=== PATIENT | male | born 1960 | race Caucasian/White ===

== ENCOUNTER 2020-02-01 12:36 | Inpatient (IN) | payer OTHER ==
[2020-02-01] MEDS ORDERED: SODIUM CHLORIDE 0.9% 500 ML 500 ML IV STA (13:19)
--- NOTE | 2020-02-01 13:32 | XR ---
EXAMINATION TYPE: XR chest 2V DATE OF EXAM: 02/01/2020 COMPARISON: None INDICATION: Dysrhythmia, short of breath TECHNIQUE: Frontal and lateral views of the chest are obtained. FINDINGS: The heart size is normal. The pulmonary vasculature is normal. There may be some mild left lower lobe infiltrate present. Suspicious consolidation is not evident. L ungs otherwise appear clear. Heart borders appear sharp. IMPRESSION: 1. Some minimal left lower lobe infiltrate is not excluded. Consider atelectasis.
[2020-02-01 13:40] LABS: Basophils % (A) 0 %; Eosinophils # (A) 0.1 k/uL (0-0.7); Eosinophils % (A) 1 %; HCT 44.1 % (39.0-53.0); HGB 15.4 gm/dL (13.0-17.5); Lymphocytes # (A) 1.4 k/uL (1.0-4.8); Lymphocytes % (A) 14 %; MCH 30.9 pg (25.0-35.0); MCHC 34.9 g/dL (31.0-37.0); MCV 88.5 fL (80.0-100.0); Mean Platelet Volume 7.6; Monocytes # (A) 0.5 k/uL (0-1.0); Monocytes % (A) 5 %; Neutrophils # (A) 8.4 k/uL (1.3-7.7); Neutrophils % (A) 79 %; Platelet Count 308 k/uL (150-450); RBC 4.98 m/uL (4.30-5.90); RDW 13.7 % (11.5-15.5); WBC 10.6 k/uL (3.8-10.6)
[2020-02-01 13:55] LABS: Partial Thromboplastin Time 24.8 sec (22.0-30.0); Prothrombin Time 10.8 sec (9.0-12.0)
[2020-02-01 14:04] LABS: Albumin 4.3 g/dL (3.5-5.0); Total Protein 8.1 g/dL (6.3-8.2)
[2020-02-01 14:05] LABS: Calcium 9.8 mg/dL (8.4-10.2); Total Bilirubin 0.9 mg/dL (0.2-1.3)
[2020-02-01 14:10] LABS: Amphetamine Screen,Urine Not Detected (NotDetected); Barbiturate Screen,Urine Not Detected (NotDetected); Benzodiazepines Screen,Urine Not Detected (NotDetected); Cocaine Screen,Urine Not Detected (NotDetected); Methadone Screen, Urine Not Detected (NotDetected); Opiate Screen,Urine Not Detected (NotDetected); Oxycodone Screen, Urine Not Detected (NotDetected); Phencyclidine Screen,Urine Not Detected (NotDetected); Tricyclic Antidepressant,Urine Not Detected (NotDetected); Urn Cannabinoid Scrn Not Detected (NotDetected)
[2020-02-01 14:17] LABS: Potassium 4.3 mmol/L (3.5-5.1)
--- NOTE | 2020-02-01 14:17 | ED ---
General Adult HPI - General Chief complaint: Arrhythmia/Palpitations Stated complaint: SOB Time Seen by Provider: 02/01/20 12:40 Source: patient, RN notes reviewed, old records reviewed Mode of arrival: ambulatory Limitations: no limitations - History of Present Illness Initial comments: This is a 59-year-old male who presents emergency Department stating that he's been short of breath since last night at dinner. Patient states she also had episode of palpitations and he has noted his heart rate is been fast on his pulse oximeter. Patient states he does not have a history of this. Patient denies any chest pain or tightness. Patient denies any lightheadedness or dizziness. Patient states he is a little bit more tired. - Related Data Allergies Allergy/AdvReac Type Severity Reaction Status Date / Time Penicillins Allergy Rash/Hives Verified 02/01/20 12:42 Review of Systems ROS Statement: Those systems with pertinent positive or pertinent negative responses have been documented in the HPI. ROS Other: All systems not noted in ROS Statement are negative. Past Medical History Past Medical History: No Reported History History of Any Multi-Drug Resistant Organisms: None Reported Past Surgical History: Orthopedic Surgery Past Psychological History: No Psychological Hx Reported Smoking Status: Never smoker Past Alcohol Use History: None Reported Past Drug Use History: None Reported General Exam - General Exam Comments Initial Comments: GENERAL: Patient is well-developed and well-nourished. Patient is nontoxic and well- hydrated and is in mild distress. ENT: Neck is soft and supple. No significant lymphadenopathy is noted. Oropharynx is clear. Moist mucous membranes. Neck has full range of motion without eliciting any pain. EYES: The sclera were anicteric and conjunctiva were pink and moist. Extraocular movements were intact and pupils were equal round and reactive to light. Eyelids were unremarkable. PULMONARY: Unlabored respirations. Good breath sounds bilaterally. No audible rales rhonchi or wheezing was noted. CARDIOVASCULAR: Patient is tachycardic at 130 beats a minute ABDOMEN: Soft and nontender with normal bowel sounds. SKIN: Skin is clear with no lesions or rashes and otherwise unremarkable. NEUROLOGIC: Patient is alert and oriented x3. Cranial nerves II through XII are grossly intact. Motor and sensory are also intact. Normal speech, volume and content. Symmetrical smile. MUSCULOSKELETAL: Normal extremities with adequate strength and full range of motion. No lower extremity swelling or edema. No calf tenderness. LYMPHATICS: No significant lymphadenopathy is noted PSYCHIATRIC: Normal psychiatric evaluation. 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 Patient's EKG shows no ST segment elevation or depression Chest x-ray shows no acute abnormality. CT of the chest shows bilateral pulmonary embolisms. I spoke with Dr. Min he agreed to admit the patient admitted the patient I wrote admitting orders. I started a heparin on the patient I continued heparin on the floor. I spoke with Dr. Zamora and he agreed with admitting the patient to the floor in his current condition was okay. He also wanted echo and a pulmonary consult. - Lab Data Result diagrams: 02/01/20 12:55 02/01/20 12:55 Lab Results 02/01/20 02/01/20 02/01/20 Range/Units 12:55 12:55 12:55 WBC 10.6 (3.8-10.6) k/uL RBC 4.98 (4.30-5.90) m/uL Hgb 15.4 (13.0-17.5) gm/dL Hct 44.1 (39.0-53.0) % MCV 88.5 (80.0-100.0) fL MCH 30.9 (25.0-35.0) pg MCHC 34.9 (31.0-37.0) g/dL RDW 13.7 (11.5-15.5) % Plt Count 308 (150-450) k/uL Neutrophils % 79 % Lymphocytes % 14 % Monocytes % 5 % Eosinophils % 1 % Basophils % 0 % Neutrophils # 8.4 H (1.3-7.7) k/uL Lymphocytes # 1.4 (1.0-4.8) k/uL Monocytes # 0.5 (0-1.0) k/uL Eosinophils # 0.1 (0-0.7) k/uL Basophils # 0.0 (0-0.2) k/uL PT 10.8 (9.0-12.0) sec INR 1.0 (<1.2) APTT 24.8 (22.0-30.0) sec D-Dimer 6.46 H (<0.60) mg/L FEU Sodium (137-145) mmol/L Potassium (3.5-5.1) mmol/L Chloride (98-107) mmol/L Carbon Dioxide (22-30) mmol/L Anion Gap mmol/L BUN (9-20) mg/dL Creatinine (0.66-1.25) mg/dL Est GFR (CKD-EPI)AfAm (>60 ml/min/1.73 sqM) Est GFR (CKD-EPI)NonAf (>60 ml/min/1.73 sqM) Glucose (74-99) mg/dL Calcium (8.4-10.2) mg/dL Magnesium (1.6-2.3) mg/dL Total Bilirubin (0.2-1.3) mg/dL AST (17-59) U/L ALT (4-49) U/L Alkaline Phosphatase (38-126) U/L Troponin I (0.000-0.034) ng/mL Total Protein (6.3-8.2) g/dL Albumin (3.5-5.0) g/dL TSH (0.465-4.680) mIU/L Urine Opiates Screen (NotDetected) Ur Oxycodone Screen (NotDetected) Urine Methadone Screen (NotDetected) Ur Propoxyphene Screen (NotDetected) Ur Barbiturates Screen (NotDetected) U Tricyclic Antidepress (NotDetected) Ur Phencyclidine Scrn (NotDetected) Ur Amphetamines Screen (NotDetected) U Methamphetamines Scrn (NotDetected) U Benzodiazepines Scrn (NotDetected) Urine Cocaine Screen (NotDetected) U Marijuana (THC) Screen (NotDetected) 0402/01/20 02/01/20 Range/Units 12:55 12:55 13:32 WBC (3.8-10.6) k/uL RBC (4.30-5.90) m/uL Hgb (13.0-17.5) gm/dL Hct (39.0-53.0) % MCV (80.0-100.0) fL MCH (25.0-35.0) pg MCHC (31.0-37.0) g/dL RDW (11.5-15.5) % Plt Count (150-450) k/uL Neutrophils % % Lymphocytes % % Monocytes % % Eosinophils % % Basophils % % Neutrophils # (1.3-7.7) k/uL Lymphocytes # (1.0-4.8) k/uL Monocytes # (0-1.0) k/uL Eosinophils # (0-0.7) k/uL Basophils # (0-0.2) k/uL PT (9.0-12.0) sec INR (<1.2) APTT (22.0-30.0) sec D-Dimer (<0.60) mg/L FEU Sodium 134 L (137-145) mmol/L Potassium 4.3 (3.5-5.1) mmol/L Chloride 98 (98-107) mmol/L Carbon Dioxide 24 (22-30) mmol/L Anion Gap 12 mmol/L BUN 22 H (9-20) mg/dL Creatinine 1.15 (0.66-1.25) mg/dL Est GFR (CKD-EPI)AfAm 80 (>60 ml/min/1.73 sqM) Est GFR (CKD-EPI)NonAf 69 (>60 ml/min/1.73 sqM) Glucose 159 H (74-99) mg/dL Calcium 9.8 (8.4-10.2) mg/dL Magnesium 2.0 (1.6-2.3) mg/dL Total Bilirubin 0.9 (0.2-1.3) mg/dL AST 31 (17-59) U/L ALT 21 (4-49) U/L Alkaline Phosphatase 72 (38-126) U/L Troponin I 0.201 H* (0.000-0.034) ng/mL Total Protein 8.1 (6.3-8.2) g/dL Albumin 4.3 (3.5-5.0) g/dL TSH 3.570 (0.465-4.680) mIU/L Urine Opiates Screen Not Detected (NotDetected) Ur Oxycodone Screen Not Detected (NotDetected) Urine Methadone Screen Not Detected (NotDetected) Ur Propoxyphene Screen Not Detected (NotDetected) Ur Barbiturates Screen Not Detected (NotDetected) U Tricyclic Antidepress Not Detected (NotDetected) Ur Phencyclidine Scrn Not Detected (NotDetected) Ur Amphetamines Screen Not Detected (NotDetected) U Methamphetamines Scrn Not Detected (NotDetected) U Benzodiazepines Scrn Not Detected (NotDetected) Urine Cocaine Screen Not Detected (NotDetected) U Marijuana (THC) Screen Not Detected (NotDetected) Critical Care Time Critical Care Time: Yes Total Critical Care Time: 35 Disposition Clinical Impression: Pulmonary embolism Disposition: ADMITTED IP TO THIS [facility] Referrals: Gregory Do DO [Primary Care Provider] - 1-2 days Time of Disposition: 15:00
[2020-02-01] MEDS ORDERED: HEPARIN SODIUM,PORCINE 10,000 UNIT/ML 1 ML VIAL IV ONE (14:55)
[2020-02-01] MEDS: HEPARIN SOD,PORK IN 0.45% NACL 25,000 UNIT in 0.45% NACL 1 250ML.BAG IV SCH (15:09)
[2020-02-01] MEDS ORDERED: SODIUM CHLORIDE 0.9% 1,000 ML IV ONE (15:11)
--- NOTE | 2020-02-01 15:16 | CT ---
CT CHEST FOR PULMONARY EMBOLISM. EXAMINATION TYPE: CT chest angio for PE DATE OF EXAM: 02/01/2020 INDICATION: Difficulty breathing, palpitations. CT DLP: 697.7 mGycm, Automated exposure control for dose reduction was used. CONTRAST: Patient injected with 100 mL of Isovue M300. COMPARISON: None TECHNIQUE: CT of the chest is performed on a spiral scan at 2 mm thick sections. Study is performed with intravenous contrast timed for evaluation for pulmonary embolism. This will limit additional po rtions of the evaluation. 3-D MIP images reconstructed by the technologist are reviewed on the compu ter in the coronal and sagittal planes. FINDINGS: There are large filling defects within the right main pulmonary artery and within the first branches from the left and right main pulmonary artery with significant blockage of bilateral lower lobe pulmo nary vessels with some extension towards lingular and right middle lobe branches. No mediastinal or hilar adenopathy enlarged by CT criteria is evident. The ascending aorta diameter at the level of the main pulmonary artery is 3.5 cm. The main pulmonary artery diameter at the bifur cation is 3.1 cm. There is a tiny density within the right middle lobe measuring 0.5 cm, image 45, sequence 401. On thi s appears to have vessels is felt to be related to pulmonary vascular density. This can be followed. There is a small pleural thickening along the posterior lateral left lung base with the 0.6 cm depth and approximately 1.0 cm with. Series 401, image 79. There is a 0.7 cm nodule within the lingula. Series [address] section through the upper abdomen. Pancreas is slightly atrophic. There is a large hypoden sity within the superior right lobe liver measuring 5.8 cm and -4 Hounsfield units. Findings are like ly a large simple cyst. IMPRESSIONS: 1. Large pulmonary emboli within bilateral lower lobe, right middle lobe, and lingular pulmonary vida ry branches. Report was called to Dr. Braxton by Dr. Delgado by telephone at the time of interpretation 1513 hours 02/01/2020.
--- NOTE | 2020-02-01 16:39 | P.CNPUL ---
<Ann No - Last Filed: 02/01/20 16:21> History of Present Illness Consult date: 02/01/20 Requesting physician: Gregory Do Reason for consult: dyspnea, abnormal CXR/CT (Large pulmonary emboli within bilateral lower lobe, right middle lobe, lingula) Chief complaint: Shortness of breath, dyspnea on exertion History of present illness: This is a very pleasant 59-year-old gentleman who follows with Dr. Do as his primary care provider. He has a history of hypertension, gastroesophageal reflux disease. Back in October of this year he had upper respiratory symptoms and also probable pneumonia and was treated with steroids and a Z-Leonidas. He recovered from that. Earlier in December she developed similar symptoms with cold and upper respiratory symptoms. That seemed to subside on its own. The last few days he had been increasing shortness of breath dyspnea on exertion some palpitations. He denied any fevers. No chills or night sweats. No productive cough. No hemoptysis. He had a virtual visit with his PCP and was given a second round of antibiotics. Possibly Levaquin which she had taken the past 3 days. Last evening and is feeling more short of breath with palpitations and dizziness upon standing. He did sleep through the night and presented here to the emergency room after talking to his PCP. White count 10.6. Hemoglobin 15.4. D-dimer 6.46. Sodium 134. Potassium 4.3. Creatinine 1.15. Troponin 0.201. Urine drug screen negative. Chest x-ray revealed minimal left lower lobe infiltrate. Possible atelectasis. CT angiogram was performed and did reveal a large pulmonary emboli within the bilateral lower lobes, right middle lobe and lingula. He is not up-to-date on his cancer screening. No previous colonoscopy. He denies any recent weight loss. No recent surgeries. No trauma to the lower extremities. No family history of PE. He denies any recent travels. No long car rides or airplane rides. He is out of the [facility]. He has been mostly at home and working from home in the computer. He is a sales office manager. He feels he has been less active than usual due to the [id number] order as mandated by the state during the CoVid 19 pandemic. Review of Systems REVIEW OF SYSTEMS: CONSTITUTIONAL: Denies any recent significant weight loss or weight gain. EYES: Denies change in vision. EARS, NOSE, MOUTH, THROAT: Denies headaches, denies sore throat. CARDIOVASCULAR: Denies chest pain, positive for palpitations and near syncopal episodes. RESPIRATORY: Positive for shortness of breath, cough, congestion or hemoptysis. GASTROINTESTINAL: Denies change in appetite, denies abdominal pain GENITOURINARY: Denies hematuria, denies infections. MUSKULOSKELETAL: Denies pain, small amounts of swelling while sitting for an extended period. INTEGUMENTARY: Denies rash, denies eczema. NEUROLOGICAL: Denies recent memory loss, no recent seizure activity. PSYCHIATRIC: Denies anxiety, denies depression. HEMATOLOGIC/LYMPHATIC: Denies anemia, denies enlarged lymph nodes. Past Medical History Past Medical History: No Reported History, GERD/Reflux, Hypertension, Sleep Apnea/CPAP/BIPAP History of Any Multi-Drug Resistant Organisms: None Reported Past Surgical History: Orthopedic Surgery Past Anesthesia/Blood Transfusion Reactions: No Reported Reaction Past Psychological History: No Psychological Hx Reported Smoking Status: Former smoker Past Alcohol Use History: None Reported Past Drug Use History: None Reported Additional History: Denies any family history of pulmonary embolism/DVT - Past Family History Father History Unknown: Yes Mother History Unknown: Yes Medications and Allergies Home Medications Medication Instructions Recorded Confirmed Type Hydrochlorothiazide [Hydrodiuril] 12.5 mg PO DAILY 02/01/20 02/01/20 History Levofloxacin 500 mg PO DAILY 02/01/20 02/01/20 History Losartan [Cozaar] 50 mg PO DAILY 02/01/20 02/01/20 History Pantoprazole Sodium [Protonix] 40 mg PO DAILY 02/01/20 02/01/20 History Allergies Allergy/AdvReac Type Severity Reaction Status Date / Time Penicillins Allergy Rash/Hives Verified 02/01/20 15:45 Physical Exam Vitals: Vital Signs Temp Pulse Pulse Pulse Resp BP BP 02/01/20 16:13 98.2 F 113 H 16 139/80 02/01/20 15:01 114 H 20 120/96 02/01/20 14:02 120 H 18 119/75 02/01/20 13:00 128 H 18 122/84 02/01/20 12:54 120 H 02/01/20 12:37 98.1 F 133 H 24 123/87 Pulse Ox 02/01/20 16:13 96 02/01/20 15:01 98 02/01/20 14:02 94 L 02/01/20 13:00 98 02/01/20 12:54 02/01/20 12:37 93 L Intake and Output 02/01/20 02/01/20 02/01/20 06:59 14:59 22:59 Other: Weight 115.666 kg 114.3 kg GENERAL EXAM: Alert, very pleasant 59-year-old gentleman, on 2 L nasal cannula, comfortable in no apparent distress. HEAD: Normocephalic. EYES: Normal reaction of pupils, equal size. NOSE: Clear with pink turbinates. THROAT: No erythema or exudates. NECK: No masses, no JVD. CHEST: No chest wall deformity. LUNGS: Equal air entry with faint crackles in the left base CVS: S1 and S2 normal with no audible murmur, regular rhythm. ABDOMEN: No hepatosplenomegaly, normal bowel sounds, no guarding or rigidity. SPINE: No scoliosis or deformity SKIN: No rashes CENTRAL NERVOUS SYSTEM: No focal deficits, tone is normal in all 4 extremities. EXTREMITIES: There is trace peripheral edema. No clubbing, no cyanosis. Peripheral pulses are intact. Results - Laboratory Findings CBC and BMP: 02/01/20 12:55 02/01/20 12:55 PT/INR, D-dimer PT 10.8 sec (9.0-12.0) 02/01/20 12:55 INR 1.0 (<1.2) 02/01/20 12:55 D-Dimer 6.46 mg/L FEU (<0.60) H 02/01/20 12:55 Abnormal lab findings: Abnormal Labs 02/01/20 02/01/20 02/01/20 12:55 12:55 12:55 Neutrophils # 8.4 H D-Dimer 6.46 H Sodium 134 L BUN 22 H Glucose 159 H Troponin I 02/01/20 12:55 Neutrophils # D-Dimer Sodium BUN Glucose Troponin I 0.201 H* - Diagnostic Findings Chest x-ray: image reviewed CT scan - chest: image reviewed Assessment and Plan Assessment: 1 Dyspnea with palpitations and near syncope related to large bilateral pulmonary emboli within the bilateral lower lobes, right middle lobe, lingula 2 Recent sedentary lifestyle secondary to [id number] ordered due to CoVID 19 pandemic 3 Troponin leak possibly secondary to ventilation/perfusion mismatch Remote history of chronic tobacco dependence 4 Previous history of upper respiratory/pneumonia treated 2 with antibiotics and steroids in the outpatient setting 5 Hypertension 6 Gastroesophageal reflux disease 8 Obesity Plan: The patient was seen and evaluated by Dr. Zamora CT angiogram chest x-ray and labs reviewed Obtain a two-dimensional echocardiogram to rule out any significant right ventricular strain Obtain Dopplers of the bilateral lower extremity to rule out DVT Continue heparin drip and will transition to oral anticoagulants Encouraged to be more active on a daily basis post discharge Plan is for at least 6 months to one year of anticoagulants due to unprovoked event We'll continue to follow and make further recommendations based on his clinical status I, the cosigning physician, performed a history & physical examination of the patient. Lungs sounds with faint crackles in the left base otherwise clear. Maintaining good O2 saturations in the 90s on 2 L/m per nasal cannula. I discussed the assessment and plan of care with my nurse practitioner, Ann No. I attest to the above consultation as dictated by her. Time with Patient: Greater than 30 <Harper Zamora - Last Filed: 02/01/20 22:32> Physical Exam Vitals: Vital Signs Temp Pulse Pulse Pulse Resp BP BP 02/01/20 20:00 97.9 F 110 H 18 121/81 02/01/20 16:13 98.2 F 113 H 16 139/80 02/01/20 15:01 114 H 20 120/96 02/01/20 14:02 120 H 18 119/75 02/01/20 13:00 128 H 18 122/84 02/01/20 12:54 120 H 02/01/20 12:37 98.1 F 133 H 24 123/87 Pulse Ox 02/01/20 20:00 94 L 02/01/20 16:13 96 02/01/20 15:01 98 02/01/20 14:02 94 L 02/01/20 13:00 98 02/01/20 12:54 02/01/20 12:37 93 L Intake and Output 02/01/20 02/01/20 02/01/20 06:59 14:59 22:59 Intake Total 953.658 Balance 953.658 Intake: IV 10 Invasive Line 1 10 Intake, IV Titration 143.658 Amount Heparin Sod,Pork in 0.45% 143.658 NaCl 25,000 unit In 0.45 % NaCl 1 250ml.bag @ 18 UNITS/KG/HR 20.82 mls/hr IV .Q12H1M [facility] Rx#: [id number] Oral 800 Other: Weight 115.666 kg 114.3 kg Results - Laboratory Findings CBC and BMP: 02/01/20 12:55 02/01/20 12:55 PT/INR, D-dimer PT 10.8 sec (9.0-12.0) 02/01/20 12:55 INR 1.0 (<1.2) 02/01/20 12:55 D-Dimer 6.46 mg/L FEU (<0.60) H 02/01/20 12:55 Abnormal lab findings: Abnormal Labs 02/01/20 02/01/20 02/01/20 12:55 12:55 12:55 Neutrophils # 8.4 H APTT D-Dimer 6.46 H Sodium 134 L BUN 22 H Glucose 159 H Troponin I 02/01/20 02/01/20 12:55 21:09 Neutrophils # APTT 131.9 H* D-Dimer Sodium BUN Glucose Troponin I 0.201 H* Assessment and Plan Plan: this is a joint evuation that was along with the nurse practitioner. Agree and above mentioned plan. Patient was started on IV heparin. The patient. Doppler of the lower extremity and echocardiogram will be also ordered. We'll continue to follow.
--- NOTE | 2020-02-01 18:06 | US ---
EXAMINATION TYPE: US venous doppler duplex LE BI DATE OF EXAM: 02/01/2020 5:04 PM COMPARISON: NONE CLINICAL HISTORY: r/o DVT. SIDE PERFORMED: Bilateral TECHNIQUE: The lower extremity deep venous system is examined utilizing real time linear array sonog steph with graded compression, doppler sonography and color-flow sonography. FINDINGS: VESSELS IMAGED: External Iliac Vein (EIV) Common Femoral Vein Deep Femoral Vein Greater Saphenous Vein * Femoral Vein Popliteal Vein Small Saphenous Vein * Proximal Calf Veins (* superficial vessels) Right Leg: Negative for DVT Left Leg: Positive for DVT, non occluding thrombus in proximal and mid popliteal vein. IMPRESSION: 1. Right: No evidence for DVT within the right lower extremity imaged from the groin to the upper debora f. 2. Left: Exam positive for incompletely occlusive DVT within the upper and mid popliteal vein.
--- NOTE | 2020-02-01 22:16 | P.HPIM ---
History of Present Illness H&P Date: 02/01/20 Chief Complaint: Palpitations Patient is a 59-year-old male with a known history of hypertension, GERD, obstructive sleep apnea and previous history of smoking came to ER with complaints of heart beating of fast and shortness of breath. Patient says that his symptoms started around 6 PM yesterday after supper and waited until this morning thinking that it is work-related. Since he's been having symptoms fail morning, patient did contact Dr. Do via telemetry medicine. Patient does have pulse oximeter at home which showed his heart rate is greater than 120. Patient's PCP recommended to go to ER. Patient felt palpitations or poor about 2 minutes yesterday. Patient says that he had pneumonia sometime in October and was treated with Z- Leonidas and steroid course. Patient's shortness of breath did not improve since then per his baseline. About a week ago patient was having cough and was started on antibiotics no levofloxacin. Otherwise patient denied any complaints of fever or chills. No cough or sputum production currently. Patient says that he occasionally have swelling of the left ankle and below the knee but improves by next day morning. Denied any dizziness or lightheadedness. EKG showed sinus tachycardia Chest x-ray showed minimal left lower lobe infiltrate. Consider atelectasis. Patient does have elevated d-dimer level .46. CT angiogram showed large pulmonary emboli within the bilateral lobes, right middle lobe and lingula. Patient otherwise denied any recent travel. Patient has been at home for the last 2-3 weeks due to Covid 19 pandemic. WBC 10.6, hemoglobin 15.4, sodium 134, potassium 4.3, creatinine 1.15 and troponin 0.201. UDS is negative. Review of Systems Constitutional: Patient denies any fever or chills . No generalized weakness or weight loss. Abdomen: Patient denied nausea vomiting and diarrhea and abdominal pain. Cardiovascular: Patient denies any chest pain. Patient does have shortness of breath and palpitations. Respiratory: patient denied any cough is from production. No shortness of breath Neurologic: Patient denied any numbness or tingling headache. Musculoskeletal: Patient denies any complaints of joint swelling or deformity. Skin: Negative Psychiatric: Negative Endocrine: No heat or cold intolerance. No recent weight gain. Genitourinary: No dysuria or hematuria. All other 14 point ROS negative except the above Past Medical History Past Medical History: No Reported History, GERD/Reflux, Hypertension, Sleep Apnea/CPAP/BIPAP History of Any Multi-Drug Resistant Organisms: None Reported Past Surgical History: Orthopedic Surgery Past Anesthesia/Blood Transfusion Reactions: No Reported Reaction Past Psychological History: No Psychological Hx Reported Smoking Status: Former smoker Past Alcohol Use History: None Reported Past Drug Use History: None Reported - Past Family History Father History Unknown: Yes Mother History Unknown: Yes Medications and Allergies Home Medications Medication Instructions Recorded Confirmed Type Hydrochlorothiazide [Hydrodiuril] 12.5 mg PO DAILY 02/01/20 02/01/20 History Levofloxacin 500 mg PO DAILY 02/01/20 02/01/20 History Losartan [Cozaar] 50 mg PO DAILY 02/01/20 02/01/20 History Pantoprazole Sodium [Protonix] 40 mg PO DAILY 02/01/20 02/01/20 History Allergies Allergy/AdvReac Type Severity Reaction Status Date / Time Penicillins Allergy Rash/Hives Verified 02/01/20 15:45 Physical Exam Vitals: Vital Signs Temp Pulse Pulse Pulse Resp BP BP 02/01/20 16:13 98.2 F 113 H 16 139/80 02/01/20 15:01 114 H 20 120/96 02/01/20 14:02 120 H 18 119/75 02/01/20 13:00 128 H 18 122/84 02/01/20 12:54 120 H 02/01/20 12:37 98.1 F 133 H 24 123/87 Pulse Ox 02/01/20 16:13 96 02/01/20 15:01 98 02/01/20 14:02 94 L 02/01/20 13:00 98 02/01/20 12:54 02/01/20 12:37 93 L Intake and Output 02/01/20 02/01/20 02/01/20 06:59 14:59 22:59 Intake Total 810 Balance 810 Intake: IV 10 Invasive Line 1 10 Oral 800 Other: Weight 115.666 kg 114.3 kg PHYSICAL EXAMINATION: Patient is lying in the bed comfortably, no acute distress, awake alert and oriented.. HEENT: Normocephalic. Neck is supple. Pupils reactive. Nostrils clear. Oral cavity is moist. Ears reveal no drainage. Neck reveals no JVD, carotid bruits, or thyromegaly. CHEST EXAMINATION: Trachea is central. Symmetrical expansion. Lung lazcano clear to auscultation and percussion. CARDIAC: Normal S1, S2 with no gallops. No murmurs ABDOMEN: Soft. Bowel sounds normal. No organomegaly. No abdominal bruits. Extremities: reveal no edema. No clubbing or cyanosis Neurologically awake, alert, oriented x3 with well-coordinated movements. No focal deficits noted Skin: No rash or skin lesions. Psychiatric: Coperative. Nonsuicidal Musculoskeletal: No joint swelling or deformity. Normal range of motion. Results CBC & Chem 7: 02/01/20 12:55 02/01/20 12:55 Labs: Abnormal Lab Results - Last 24 Hours (Table) 02/01/20 02/01/20 02/01/20 Range/Units 12:55 12:55 12:55 Neutrophils # 8.4 H (1.3-7.7) k/uL D-Dimer 6.46 H (<0.60) mg/L FEU Sodium 134 L (137-145) mmol/L BUN 22 H (9-20) mg/dL Glucose 159 H (74-99) mg/dL Troponin I (0.000-0.034) ng/mL 02/01/20 Range/Units 12:55 Neutrophils # (1.3-7.7) k/uL D-Dimer (<0.60) mg/L FEU Sodium (137-145) mmol/L BUN (9-20) mg/dL Glucose (74-99) mg/dL Troponin I 0.201 H* (0.000-0.034) ng/mL Thrombosis Risk Factor Assmnt - DVT/VTE Prophylaxis DVT/VTE Prophylaxis: Pharmacologic Prophylaxis ordered - Choose All That Apply Any of the Below Risk Factors Present?: Yes Each Factor Represents 1 point: Swollen legs (current) Other Risk Factors: Yes Each Risk Factor Represents 2 Points: Age 61-74 years Other congenital or acquired thrombophilia - If yes, enter type in comment: No Thrombosis Risk Factor Assessment Total Risk Factor Score: 3 Thrombosis Risk Factor Assessment Level: Moderate Risk Assessment and Plan Assessment: Acute bilateral lower lobe and right middle lobe, lingula pulmonary emboli. Etiology could be recent sedentary lifestyle with [id number] order due to Covid 19 panic. Elevated troponin level likely due to demand mismatch Sinus tachycardia Recent history of pneumonia in October and also elderly December. Treated with azithromycin and Levaquin. Previous history of smoking Hypertension GERD Morbid obesity BMI 36.2 Obstructive sleep apnea not on CPAP at home Plan: Patient will be continued on heparin drip. Continue with telemetry monitoring. Continue with home medications. 2-D echocardiogram and bilateral lower extre mity duplex scan was ordered. Pulmonary is on board. Further recommendations based on the clinical course. Time with Patient: Greater than 30
[2020-02-02] MEDS: HEPARIN SOD,PORK IN 0.45% NACL 25,000 UNIT in 0.45% NACL 1 250ML.BAG IV SCH (03:01)
[2020-02-02 04:56] LABS: Basophils % (A) 0 %; Eosinophils # (A) 0.3 k/uL (0-0.7); Eosinophils % (A) 3 %; HCT 42.2 % (39.0-53.0); HGB 14.4 gm/dL (13.0-17.5); Lymphocytes # (A) 2.1 k/uL (1.0-4.8); Lymphocytes % (A) 21 %; MCH 30.6 pg (25.0-35.0); MCHC 34.1 g/dL (31.0-37.0); MCV 89.7 fL (80.0-100.0); Mean Platelet Volume 7.4; Monocytes # (A) 0.5 k/uL (0-1.0); Monocytes % (A) 5 %; Neutrophils # (A) 6.9 k/uL (1.3-7.7); Neutrophils % (A) 69 %; Platelet Count 281 k/uL (150-450); RBC 4.71 m/uL (4.30-5.90); RDW 13.7 % (11.5-15.5); WBC 10.1 k/uL (3.8-10.6)
[2020-02-02 05:08] LABS: Calcium 9.1 mg/dL (8.4-10.2); Potassium 4.3 mmol/L (3.5-5.1)
[2020-02-02] MEDS: PANTOPRAZOLE 40 MG TABLET PO SCH (09:01)
[2020-02-02] MEDS: APIXABAN 5 MG TAB PO SCH ×2 (12:28→20:14)
--- NOTE | 2020-02-02 13:00 | ECHOF ---
Referral Reason:pe MEASUREMENTS -------- HEIGHT: 177.8 cm WEIGHT: 113.4 kg BP: 127/80 RVIDd: 3.8 cm (< 3.3) IVSd: 1.3 cm (0.6 - 1.1) LVIDd: 3.2 cm (3.9 - 5.3) LVPWd: 1.3 cm (0.6 - 1.1) IVSs: 1.6 cm LVIDs: 2.7 cm LVPWs: 1.7 cm LA Diam: 2.7 cm (2.7 - 3.8) LAESV Index (A-L): 14.26 ml/m Ao Diam: 3.7 cm (2.0 - 3.7) AV Cusp: 2.0 cm (1.5 - 2.6) MV EXCURSION: 15.271 mm (> 18.000) MV EF SLOPE: 84 mm/s (70 - 150) EPSS: 0.9 cm MV E Reese: 0.66 m/s MV DecT: 191 ms MV A Reese: 0.87 m/s MV E/A Ratio: 0.76 RAP: 15.00 mmHg RVSP: 55.44 mmHg TAPSE: 13.64 mm FINDINGS -------- Resting tachycardia (HR>100bpm). This was a technically adequate study. The left ventricular size is normal. There is mild concentric left ventricular hypertrophy. Overa ll left ventricular systolic function is normal with, an EF between 60 - 65 %. The right ventricle is mild to moderately enlarged. Normal LA size by volume 22+/-6 ml/m2. The right atrium is normal in size. Interatrial and interventricular septum intact. The aortic valve is trileaflet and appears structurally normal. There is trace mitral regurgitation. Trace tricuspid regurgitation present. There is moderate to severe pulmonary hypertension. The ri ght ventricular systolic pressure, as measured by Doppler, is 55.44mmHg. There is no pulmonic regurgitation present. The aortic root size is normal. The inferior vena cava is dilated with no significant inspiratory collapse which is consistent estima estefany right atrial pressure of >15 mmHg. There is no pericardial effusion. CONCLUSIONS -------- 1. Resting tachycardia (HR>100bpm). 2. This was a technically adequate study. 3. The left ventricular size is normal. 4. There is mild concentric left ventricular hypertrophy. 5. Overall left ventricular systolic function is normal with, an EF between 60 - 65 %. 6. The right ventricle is mild to moderately enlarged. 7. Normal LA size by volume 22+/-6 ml/m2. 8. The right atrium is normal in size. 9. Interatrial and interventricular septum intact. 10. The aortic valve is trileaflet and appears structurally normal. 11. There is trace mitral regurgitation. 12. Trace tricuspid regurgitation present. 13. There is moderate to severe pulmonary hypertension. 14. The right ventricular systolic pressure, as measured by Doppler, is 55.44mmHg. 15. There is no pulmonic regurgitation present. 16. The aortic root size is normal. 17. The inferior vena cava is dilated with no significant inspiratory collapse which is consistent es timated right atrial pressure of >15 mmHg. 18. There is no pericardial effusion. [employer]: Dana Willams RDCS
--- NOTE | 2020-02-02 14:03 | P.PN ---
Subjective Progress Note Date: 02/02/20 Principal diagnosis: Dyspnea secondary to bilateral pulmonary emboli This is a very pleasant 59-year-old gentleman who follows with Dr. Do as his primary care provider. He has a history of hypertension, gastroesophageal reflux disease. Back in October of this year he had upper respiratory symptoms and also probable pneumonia and was treated with steroids and a Z-Leonidas. He recovered from that. Earlier in December she developed similar symptoms with cold and upper respiratory symptoms. That seemed to subside on its own. The last few days he had been increasing shortness of breath dyspnea on exertion some palpitations. He denied any fevers. No chills or night sweats. No productive cough. No hemoptysis. He had a virtual visit with his PCP and was given a second round of antibiotics. Possibly Levaquin which she had taken the past 3 days. Last evening and is feeling more short of breath with palpitations and dizziness upon standing. He did sleep through the night and presented here to the emergency room after talking to his PCP. White count 10.6. Hemoglobin 15.4. D-dimer 6.46. Sodium 134. Potassium 4.3. Creatinine 1.15. Troponin 0.201. Urine drug screen negative. Chest x-ray revealed minimal left lower lobe infiltrate. Possible atelectasis. CT angiogram was performed and did reveal a large pulmonary emboli within the bilateral lower lobes, right middle lobe and lingula. He is not up-to-date on his cancer screening. No previous colonoscopy. He denies any recent weight loss. No recent surgeries. No trauma to the lower extremities. No family history of PE. He denies any recent travels. No long car rides or airplane rides. He is out of the [facility]. He has been mostly at home and working from home in the computer. He is a parts salesman. He feels he has been less active than usual due to the [id number] order as mandated by the state during the CoVid 19 pandemic. The patient is seen today the 2019 in follow-up on the regular medical floor. He is currently sitting up at the bedside. Awake and alert in no acute distress. He still has some dyspnea on minimal exertion. No significant chest discomfort. No hemoptysis. Maintaining good O2 saturations in the 90s on 2 L/m per nasal cannula. Less tachycardic. Afebrile. Hemodynamically stable. He is continued on a heparin drip. White count 10.1. Hematoma 14.4. Sodium 136. Potassium 4.3. Creatinine 1.04. Echocardiogram revealed preserved left ve ntricular systolic function with ejection fraction 60-65%. Right ventricle is mild to moderately enlarged. There is moderate to severe pulmonary hypertension with an RVSP of 55.44 mmHg. Objective - Vital Signs Vital signs: Vital Signs Temp 97.5 F L 02/02/20 12:00 Pulse 108 H 02/02/20 12:00 Resp 20 02/02/20 12:00 BP 112/78 02/02/20 12:00 Pulse Ox 96 02/02/20 12:00 Intake & Output 02/01/20 02/02/20 02/02/20 18:59 06:59 18:59 Intake Total 270 781.108 880 Balance 270 781.108 880 Weight 114.3 kg 113.5 kg Intake: IV 10 640 Heparin Sod,Pork in 0.45% 40 NaCl 25,000 unit In 0.45 % NaCl 1 250ml.bag @ 18 UNITS/KG/HR 20.82 mls/hr IV .Q12H1M [facility] Rx#: [id number] Invasive Line 1 10 Sodium Chloride 0.9% 1, 600 000 ml @ 75 mls/hr IV . [id number] [facility] Rx#:[id number] Intake, IV Titration 241.108 Amount Heparin Sod,Pork in 0.45% 241.108 NaCl 25,000 unit In 0.45 % NaCl 1 250ml.bag @ 18 UNITS/KG/HR 20.82 mls/hr IV .Q12H1M [facility] Rx#: [id number] Oral 260 540 240 Other: Voiding Method Toilet # Voids 1 1 # Bowel Movements 0 - Exam GENERAL EXAM: Alert, active, very pleasant 59-year-old gentleman, on 2 L nasal cannula, comfortable in no apparent distress. HEAD: Normocephalic. EYES: Normal reaction of pupils, equal size. NOSE: Clear with pink turbinates. THROAT: No erythema or exudates. NECK: No masses, no JVD. CHEST: No chest wall deformity. LUNGS: Equal air entry with no crackles, wheeze, rhonchi or dullness. CVS: S1 and S2 normal with no audible murmur, regular rhythm. ABDOMEN: No hepatosplenomegaly, normal bowel sounds, no guarding or rigidity. SPINE: No scoliosis or deformity SKIN: No rashes CENTRAL NERVOUS SYSTEM: No focal deficits, tone is normal in all 4 extremities. EXTREMITIES: There is no peripheral edema. No clubbing, no cyanosis. Peripheral pulses are intact. - Labs CBC & Chem 7: 02/02/20 04:29 02/02/20 04:29 Labs: Abnormal Lab Results - Last 24 Hours (Table) 02/01/20 02/01/20 02/01/20 Range/Units 12:55 12:55 12:55 APTT (22.0-30.0) sec D-Dimer 6.46 H (<0.60) mg/L FEU Sodium 134 L (137-145) mmol/L BUN 22 H (9-20) mg/dL Glucose 159 H (74-99) mg/dL Troponin I 0.201 H* (0.000-0.034) ng/mL 02/01/20 02/02/20 02/02/20 Range/Units 21:09 04:29 04:29 APTT 131.9 H* 71.4 H (22.0-30.0) sec D-Dimer (<0.60) mg/L FEU Sodium 136 L (137-145) mmol/L BUN (9-20) mg/dL Glucose 119 H (74-99) mg/dL Troponin I (0.000-0.034) ng/mL 02/02/20 Range/Units 10:34 APTT 50.0 H (22.0-30.0) sec D-Dimer (<0.60) mg/L FEU Sodium (137-145) mmol/L BUN (9-20) mg/dL Glucose (74-99) mg/dL Troponin I (0.000-0.034) ng/mL Assessment and Plan Assessment: 1 Dyspnea with palpitations and near syncope related to large bilateral pulmonary emboli within the bilateral lower lobes, right middle lobe, lingula 2 Left lower extremity DVT 3 Troponin leak possibly secondary to ventilation/perfusion mismatch 4 Moderate to severe pulmonary hypertension with an RVSP of 55 mmHg. Right ventricle is mild to moderately enlarged. 5 Remote history of chronic tobacco dependence 6 Previous history of upper respiratory/pneumonia treated 2 with antibiotics a nd steroids in the outpatient setting 7 Hypertension 8 Gastroesophageal reflux disease 9 Obesity Plan: The patient was seen and evaluated by Dr. Zamora Echocardiogram reviewed Doppler lower extremity reviewed Discontinue heparin drip after transition to Eliis We'll continue to follow and make further recommendations based on his clinical status I, the cosigning physician, performed a history & physical examination of the patient. Lungs sounds with faint crackles in the left base otherwise clear. Maintaining good O2 saturations in the 90s on 2 L/m per nasal cannula. I discussed the assessment and plan of care with my nurse practitioner, Ann No. I attest to the above note as dictated by her.
--- NOTE | 2020-02-02 23:52 | P.PN ---
Subjective Progress Note Date: 02/02/20 Principal diagnosis: Acute pulmonary embolism and left lower extremity DVT Patient is a 59-year-old male with a known history of hypertension, GERD, obstructive sleep apnea and previous history of smoking came to ER with complaints of heart beating of fast and shortness of breath. Patient says that his symptoms started around 6 PM yesterday after supper and waited until this m orning thinking that it is work-related. Since he's been having symptoms fail morning, patient did contact Dr. Do via telemetry medicine. Patient does have pulse oximeter at home which showed his heart rate is greater than 120. Patient's PCP recommended to go to ER. Patient felt palpitations or poor about 2 minutes yesterday. Patient says that he had pneumonia sometime in October and was treated with Z- Leonidas and steroid course. Patient's shortness of breath did not improve since then per his baseline. About a week ago patient was having cough and was started on antibiotics no levofloxacin. Otherwise patient denied any complaints of fever or chills. No cough or sputum production currently. Patient says that he occasionally have swelling of the left ankle and below the knee but improves by next day morning. Denied any dizziness or lightheadedness. EKG showed sinus tachycardia Chest x-ray showed minimal left lower lobe infiltrate. Consider atelectasis. Patient does have elevated d-dimer level .46. CT angiogram showed large pulmonary emboli within the bilateral lobes, right middle lobe and lingula. Patient otherwise denied any recent travel. Patient has been at home for the last 2-3 weeks due to Covid 19 pandemic. WBC 10.6, hemoglobin 15.4, sodium 134, potassium 4.3, creatinine 1.15 and troponin 0.201. UDS is negative. 02/02/20 Patient is currently lying in the bed comfortably. No complaints of chest pain. Shortness of breath with ambulation. No palpitations. Heart rate is better controlled. Patient was started on oral antifungal ablation with Eliquis. Pulmonary is following. 2-D echocardiogram showed normal left ventricle Systolic function. Moderate right ventricular dilatation and moderate to severe pulmonary hypertension. Currently on saturating well on oxygen with another cannula at 2 L. No complaints of chest pain. No nausea vomiting or abdominal pain. Hemoglobin 14.4 Current medications reviewed. Objective - Vital Signs Vital signs: Vital Signs Temp 98.2 F 02/02/20 20:00 Pulse 105 H 02/02/20 20:00 Resp 19 02/02/20 20:00 BP 127/89 02/02/20 20:00 Pulse Ox 97 02/02/20 20:00 Intake & Output 02/02/20 02/02/20 02/03/20 06:59 18:59 06:59 Intake Total 874.970 6946 Balance 002.131 8630 Weight 113.5 kg Intake: IV 640 Heparin Sod,Pork in 0.45% 40 NaCl 25,000 unit In 0.45 % NaCl 1 250ml.bag @ 18 UNITS/KG/HR 20.82 mls/hr IV .Q12H1M [facility] Rx#: [id number] Sodium Chloride 0.9% 1, 600 000 ml @ 75 mls/hr IV . [id number] [facility] Rx#:[id number] Intake, IV Titration 241.108 Amount Heparin Sod,Pork in 0.45% 241.108 NaCl 25,000 unit In 0.45 % NaCl 1 250ml.bag @ 18 UNITS/KG/HR 20.82 mls/hr IV .Q12H1M [facility] Rx#: [id number] Oral 540 600 Other: Voiding Method Toilet Toilet # Voids 1 2 # Bowel Movements 0 - Labs CBC & Chem 7: 02/02/20 04:29 02/02/20 04:29 Labs: Abnormal Lab Results - Last 24 Hours (Table) 02/02/20 02/02/20 02/02/20 Range/Units 04:29 04:29 10:34 APTT 71.4 H 50.0 H (22.0-30.0) sec Sodium 136 L (137-145) mmol/L Glucose 119 H (74-99) mg/dL Assessment and Plan Assessment: Acute bilateral lower lobe and right middle lobe, lingula pulmonary emboli. Etiology could be recent sedentary lifestyle with [id number] order due to Covid 19 panic. Acute left lower extremity DVT. Elevated troponin level likely due to demand mismatch Sinus tachycardia Recent history of pneumonia in October and also elderly December. Treated with azithromycin and Levaquin. Previous history of smoking Hypertension GERD Morbid obesity BMI 36.2 Obstructive sleep apnea not on CPAP at home Plan: Patient was continued on heparin drip. Started on oral anticoagulants today. Continue with telemetry monitoring. Continue with home medications. 2-D echocardiogram and bilateral lower extremity duplex scan reports reviewed.. Pulmonary is on board. Continue with oxygen therapy. Further recommendations based on the clinical course. Time with Patient: Greater than 30
[2020-02-03 06:14] LABS: Basophils % (A) 0 %; Eosinophils # (A) 0.3 k/uL (0-0.7); Eosinophils % (A) 4 %; HCT 39.4 % (39.0-53.0); HGB 13.4 gm/dL (13.0-17.5); Lymphocytes # (A) 1.5 k/uL (1.0-4.8); Lymphocytes % (A) 17 %; MCH 30.5 pg (25.0-35.0); MCHC 34.1 g/dL (31.0-37.0); MCV 89.6 fL (80.0-100.0); Mean Platelet Volume 7.4; Monocytes # (A) 0.4 k/uL (0-1.0); Monocytes % (A) 5 %; Neutrophils # (A) 6.2 k/uL (1.3-7.7); Neutrophils % (A) 72 %; Platelet Count 252 k/uL (150-450); RBC 4.39 m/uL (4.30-5.90); RDW 13.7 % (11.5-15.5); WBC 8.6 k/uL (3.8-10.6)
[2020-02-03 06:22] LABS: Potassium 4.8 mmol/L (3.5-5.1)
[2020-02-03] MEDS: APIXABAN 5 MG TAB PO SCH ×2 (08:13→20:00)
[2020-02-03] MEDS: PANTOPRAZOLE 40 MG TABLET PO SCH (08:14)
--- NOTE | 2020-02-03 14:32 | P.PN ---
Subjective Progress Note Date: 02/03/20 Principal diagnosis: Dyspnea secondary to bilateral pulmonary emboli This is a very pleasant 59-year-old gentleman who follows with Dr. Do as his primary care provider. He has a history of hypertension, gastroesophageal reflux disease. Back in October of this year he had upper respiratory symptoms and also probable pneumonia and was treated with steroids and a Z-Leonidas. He recovered from that. Earlier in December she developed similar symptoms with cold and upper respiratory symptoms. That seemed to subside on its own. The last few days he had been increasing shortness of breath dyspnea on exertion some palpitations. He denied any fevers. No chills or night sweats. No productive cough. No hemoptysis. He had a virtual visit with his PCP and was given a second round of antibiotics. Possibly Levaquin which she had taken the past 3 days. Last evening and is feeling more short of breath with palpitations and dizziness upon standing. He did sleep through the night and presented here to the emergency room after talking to his PCP. White count 10.6. Hemoglobin 15.4. D-dimer 6.46. Sodium 134. Potassium 4.3. Creatinine 1.15. Troponin 0.201. Urine drug screen negative. Chest x-ray revealed minimal left lower lobe infiltrate. Possible atelectasis. CT angiogram was performed and did reveal a large pulmonary emboli within the bilateral lower lobes, right middle lobe and lingula. He is not up-to-date on his cancer screening. No previous colonoscopy. He denies any recent weight loss. No recent surgeries. No trauma to the lower extremities. No family history of PE. He denies any recent travels. No long car rides or airplane rides. He is out of the [facility]. He has been mostly at home and working from home in the computer. He is a salesperson meats. He feels he has been less active than usual due to the [id number] order as mandated by the state during the CoVid 19 pandemic. The patient is seen today the 2019 in follow-up on the regular medical floor. He is currently sitting up at the bedside. Awake and alert in no acute distress. He still has some dyspnea on minimal exertion. No significant chest discomfort. No hemoptysis. Maintaining good O2 saturations in the 90s on 2 L/m per nasal cannula. Less tachycardic. Afebrile. Hemodynamically stable. He is continued on a heparin drip. White count 10.1. Hematoma 14.4. Sodium 136. Potassium 4.3. Creatinine 1.04. Echocardiogram revealed preserved left ve ntricular systolic function with ejection fraction 60-65%. Right ventricle is mild to moderately enlarged. There is moderate to severe pulmonary hypertension with an RVSP of 55.44 mmHg. The patient is seen today 02/03/2020 in follow-up on the regular medical floor. He is awake and alert in no acute distress. Resting fairly comfortably in bed. He is still requiring 3 L/m per nasal cannula to maintain O2 saturations in the 90s. He was 88% on room air. He is afebrile. Hemodynamically stable. White count 8.6. Hemoglobin 13.4. Creatinine 1.12. He has been transitioned to Eliquis. Objective - Vital Signs Vital signs: Vital Signs Temp 97.6 F 02/03/20 12:00 Pulse 101 H 02/03/20 12:00 Resp 16 02/03/20 12:00 BP 123/88 02/03/20 12:00 Pulse Ox 96 02/03/20 12:00 Intake & Output 02/02/20 02/03/20 02/03/20 18:59 06:59 18:59 Intake Total 1240 360 Balance 1240 360 Weight 113.2 kg Intake: IV 640 Heparin Sod,Pork in 0.45% 40 NaCl 25,000 unit In 0.45 % NaCl 1 250ml.bag @ 18 UNITS/KG/HR 20.82 mls/hr IV .[id number] [facility] Rx#: [id number] Sodium Chloride 0.9% 1, 600 000 ml @ 75 mls/hr IV . [id number] Rx#:[id number] Oral 600 360 Other: Voiding Method Toilet Toilet Toilet # Voids 2 1 1 # Bowel Movements 0 0 - Exam GENERAL EXAM: Alert, active, very pleasant 59-year-old gentleman, on 3 L nasal cannula, comfortable in no apparent distress. HEAD: Normocephalic. EYES: Normal reaction of pupils, equal size. NOSE: Clear with pink turbinates. THROAT: No erythema or exudates. NECK: No masses, no JVD. CHEST: No chest wall deformity. LUNGS: Equal air entry with no crackles, wheeze, rhonchi or dullness. CVS: S1 and S2 normal with no audible murmur, regular rhythm. ABDOMEN: No hepatosplenomegaly, normal bowel sounds, no guarding or rigidity. SPINE: No scoliosis or deformity SKIN: No rashes CENTRAL NERVOUS SYSTEM: No focal deficits, tone is normal in all 4 extremities. EXTREMITIES: There is no peripheral edema. No clubbing, no cyanosis. Peripheral pulses are intact. - Labs CBC & Chem 7: 02/03/20 05:51 02/03/20 05:51 Labs: Abnormal Lab Results - Last 24 Hours (Table) 02/03/20 Range/Units 05:51 Sodium 136 L (137-145) mmol/L BUN 21 H (9-20) mg/dL Glucose 116 H (74-99) mg/dL Assessment and Plan Assessment: 1 Acute hypoxic respiratory failure with palpitations and near syncope related to bilateral pulmonary emboli within the bilateral lower lobes, right middle lobe, lingula 2 Left lower extremity DVT 3 Troponin leak possibly secondary to ventilation/perfusion mismatch 4 Moderate to severe pulmonary hypertension with an RVSP of 55 mmHg. Right ventricle is mild to moderately enlarged. 5 Remote history of chronic tobacco dependence 6 Previous history of upper respiratory/pneumonia treated 2 with antibiotics and steroids in the outpatient setting 7 Hypertension 8 Gastroesophageal reflux disease 9 Obesity Plan: The patient was seen and evaluated by Dr. Noah Mata from the pulmonary standpoint Titrate down the FiO2 as tolerated Continue Eliquis Increase his activity as tolerated Probable home in the a.m. We'll continue to follow and make further recommendations based on his clinical status I, the cosigning physician, performed a history & physical examination of the patient. Lungs sounds with faint crackles in the left base otherwise clear. Maintaining good O2 saturations in the 90s on 3 L/m per nasal cannula. I discussed the assessment and plan of care with my nurse practitioner, Ann No. I attest to the above note as dictated by her.
[2020-02-03 21:31] VITALS: PULSE 101
--- NOTE | 2020-02-04 00:35 | P.PN ---
Subjective Progress Note Date: 02/03/20 Principal diagnosis: Acute pulmonary embolism and left lower extremity DVT Patient is a 59-year-old male with a known history of hypertension, GERD, obstructive sleep apnea and previous history of smoking came to ER with complaints of heart beating of fast and shortness of breath. Patient says that his symptoms started around 6 PM yesterday after supper and waited until this m orning thinking that it is work-related. Since he's been having symptoms fail morning, patient did contact Dr. Do via telemetry medicine. Patient does have pulse oximeter at home which showed his heart rate is greater than 120. Patient's PCP recommended to go to ER. Patient felt palpitations or poor about 2 minutes yesterday. Patient says that he had pneumonia sometime in October and was treated with Z- Leonidas and steroid course. Patient's shortness of breath did not improve since then per his baseline. About a week ago patient was having cough and was started on antibiotics no levofloxacin. Otherwise patient denied any complaints of fever or chills. No cough or sputum production currently. Patient says that he occasionally have swelling of the left ankle and below the knee but improves by next day morning. Denied any dizziness or lightheadedness. EKG showed sinus tachycardia Chest x-ray showed minimal left lower lobe infiltrate. Consider atelectasis. Patient does have elevated d-dimer level .46. CT angiogram showed large pulmonary emboli within the bilateral lobes, right middle lobe and lingula. Patient otherwise denied any recent travel. Patient has been at home for the last 2-3 weeks due to Covid 19 pandemic. WBC 10.6, hemoglobin 15.4, sodium 134, potassium 4.3, creatinine 1.15 and troponin 0.201. UDS is negative. 02/02/20 Patient is currently lying in the bed comfortably. No complaints of chest pain. Shortness of breath with ambulation. No palpitations. Heart rate is better controlled. Patient was started on oral antifungal ablation with Eliquis. Pulmonary is following. 2-D echocardiogram showed normal left ventricle Systolic function. Moderate right ventricular dilatation and moderate to severe pulmonary hypertension. Currently on saturating well on oxygen with another cannula at 2 L. No complaints of chest pain. No nausea vomiting or abdominal pain. Hemoglobin 14.4 02/03/2020 Patient is currently able to ambulate in the room. Denied any complaints of chest pain are worsening shortness of breath. Still requiring oxygen when as a cannula. Hemoglobin level is 13.4. No headache or dizziness lightheadedness. Pulmonary is following. Anticipate discharge once oxygenation improves. Current medications reviewed. Objective - Vital Signs Vital signs: Vital Signs Temp 97.8 F 02/03/20 21:00 Pulse 101 H 02/03/20 21:00 Resp 16 02/03/20 21:00 BP 113/77 02/03/20 21:00 Pulse Ox 95 02/03/20 21:00 Intake & Output 02/03/20 02/03/20 02/04/20 06:59 18:59 06:59 Intake Total 360 Balance 360 Weight 113.2 kg Intake: Oral 360 Other: Voiding Method Toilet Toilet # Voids 1 1 # Bowel Movements 0 - Exam PHYSICAL EXAMINATION: Patient is lying in the bed comfortably, no acute distress, awake alert and oriented.. HEENT: Normocephalic. Neck is supple. Pupils reactive. Nostrils clear. Oral cavity is moist. Ears reveal no drainage. Neck reveals no JVD, carotid bruits, or thyromegaly. CHEST EXAMINATION: Trachea is central. Symmetrical expansion. Lung lazcano clear to auscultation and percussion. CARDIAC: Normal S1, S2 with no gallops. No murmurs ABDOMEN: Soft. Bowel sounds normal. No organomegaly. No abdominal bruits. Extremities: reveal no edema. No clubbing or cyanosis Neurologically awake, alert, oriented x3 with well-coordinated movements. No focal deficits noted Skin: No rash or skin lesions. Psychiatric: Coperative. Nonsuicidal Musculoskeletal: No joint swelling or deformity. Normal range of motion. - Labs CBC & Chem 7: 02/03/20 05:51 02/03/20 05:51 Labs: Abnormal Lab Results - Last 24 Hours (Table) 02/03/20 Range/Units 05:51 Sodium 136 L (137-145) mmol/L BUN 21 H (9-20) mg/dL Glucose 116 H (74-99) mg/dL Assessment and Plan Assessment: Acute bilateral lower lobe and right middle lobe, lingula pulmonary emboli. Etiology could be recent sedentary lifestyle with avtu-kq-ocat order due to Covid 19 panic. Acute left lower extremity DVT. Elevated troponin level likely due to demand mismatch Sinus tachycardia Recent history of pneumonia in October and also elderly December. Treated with azithromycin and Levaquin. Previous history of smoking Hypertension GERD Morbid obesity BMI 36.2 Obstructive sleep apnea not on CPAP at home Plan: Patient was continued on heparin drip. Started on oral anticoagulants with Eliquis. Continue with telemetry monitoring, oxygen therapy.. Continue with home medications. 2-D echocardiogram and bilateral lower extremity duplex scan reports reviewed.. Pulmonary is on board. Continue with oxygen therapy. Further recommendations based on the clinical course. Time with Patient: Greater than 30
[2020-02-04] MEDS: PANTOPRAZOLE 40 MG TABLET PO SCH (08:19)
[2020-02-04] MEDS: APIXABAN 5 MG TAB PO SCH (08:20)
--- NOTE | 2020-02-04 08:38 | XR ---
EXAMINATION TYPE: XR chest 1V DATE OF EXAM: 02/04/2020 COMPARISON: 02/01/2020 HISTORY: Hypoxia, known pulmonary embolism. TECHNIQUE: Single frontal view of the chest is obtained. FINDINGS: Minimal linear perihilar atelectasis. There is no focal air space opacity, pleural effusio n, or pneumothorax seen. The cardiac silhouette is stable. The osseous structures are intact. IMPRESSION: Multifocal perihilar subsegmental atelectasis.
--- NOTE | 2020-02-04 11:54 | P.DS ---
Providers Date of admission: 02/01/20 15:11 Expected date of discharge: 02/04/20 Attending physician: Gregory Do Consults: 02/01/20 15:11 Consult Physician Urgent Consulting Provider: Harper Zamora Consult Reason/Comments: Pulmonary embolism Do you want consulting provider notified?: Yes Primary care physician: Gregory Do [facility] Course: Final Diagnoses: Acute bilateral lower lobe and right middle lobe, lingula pulmonary emboli. Etiology could be recent sedentary lifestyle with [id number] order due to Covid 19 panic. Acute left lower extremity DVT. Elevated troponin level likely due to demand mismatch Sinus tachycardia Recent history of pneumonia in October and also early December. Treated with azithromycin and Levaquin. Previous history of smoking Hypertension GERD Morbid obesity BMI 36.2 Obstructive sleep apnea not on CPAP at home Moderate to severe pulmonary hypertension Atelectasis Hospital course: This a 59-year-old gentleman admitted with acute PE and left lower extremity DVT and multiple other medical issues. Evaluated by pulmonary. Maintained on heparin drip, converted to Eliquis . Echo reported normal LV function, EF 60-65%, moderate to severe pulmonary hypertension. Recommend continued preventative screening, outpatient PSA and eventually colonoscopy .Patient will be discharged home today, in a stable condition with guarded progn osis, pending pulmonary clearance and final DC recommendations. Please refer to H&P, consult and progress notes for specifics. The impression and plan of care has been dictated as directed. : I performed a history and examination of this patient, discussed the same with the dictator. I agree with the dictator's note ,documented as a scribe. Any additional findings or plans will be noted. Patient Condition at Discharge: Stable Plan - Discharge Summary Discharge Rx Participant: No New Discharge Prescriptions: New Apixaban [Eliquis] 10 mg PO BID tab Albuterol Sulfate [Proventil Hfa] 2 puff INHALATION QID #1 inhaler Continue Pantoprazole Sodium [Protonix] 40 mg PO DAILY Losartan [Cozaar] 50 mg PO DAILY Hydrochlorothiazide [Hydrodiuril] 12.5 mg PO DAILY Discontinued Levofloxacin 500 mg PO DAILY Discharge Medication List Hydrochlorothiazide [Hydrodiuril] 12.5 mg PO DAILY 02/01/20 [History] Losartan [Cozaar] 50 mg PO DAILY 02/01/20 [History] Pantoprazole Sodium [Protonix] 40 mg PO DAILY 02/01/20 [History] Albuterol Sulfate [Proventil Hfa] 2 puff INHALATION QID #1 inhaler 02/04/20 [Rx] Apixaban [Eliquis] 10 mg PO BID tab 02/04/20 [Rx] Follow up Appointment(s)/Referral(s): Gregory Do DO [Primary Care Provider] - 3 Days (Office not answering. Please call to make appointment) Ambulatory/Diagnostic Orders: Complete Blood Count w/diff [LAB.AMB] Time Frame: 3 Days, Location: None Selected Patient Instructions/Handouts: Albuterol (By breathing), Apixaban (By mouth), Pulmonary Embolism (DC) Activity/Diet/Wound Care/Special Instructions: First month Eliquis free. Monthly copay after free trial is $50. Case management reports Eliquis prescription already in our pharmacy Discharge Disposition: HOME SELF-CARE
[2020-02-04 12:41] VITALS: BP 123/87; RESP 17; TEMP 98.3
--- NOTE | 2020-02-04 12:59 | P.PN ---
Subjective Progress Note Date: 02/04/20 Principal diagnosis: Dyspnea secondary to bilateral pulmonary emboli This is a very pleasant 59-year-old gentleman who follows with Dr. Do as his primary care provider. He has a history of hypertension, gastroesophageal reflux disease. Back in October of this year he had upper respiratory symptoms and also probable pneumonia and was treated with steroids and a Z-Leonidas. He recovered from that. Earlier in December she developed similar symptoms with cold and upper respiratory symptoms. That seemed to subside on its own. The last few days he had been increasing shortness of breath dyspnea on exertion some palpitations. He denied any fevers. No chills or night sweats. No productive cough. No hemoptysis. He had a virtual visit with his PCP and was given a second round of antibiotics. Possibly Levaquin which she had taken the past 3 days. Last evening and is feeling more short of breath with palpitations and dizziness upon standing. He did sleep through the night and presented here to the emergency room after talking to his PCP. White count 10.6. Hemoglobin 15.4. D-dimer 6.46. Sodium 134. Potassium 4.3. Creatinine 1.15. Troponin 0.201. Urine drug screen negative. Chest x-ray revealed minimal left lower lobe infiltrate. Possible atelectasis. CT angiogram was performed and did reveal a large pulmonary emboli within the bilateral lower lobes, right middle lobe and lingula. He is not up-to-date on his cancer screening. No previous colonoscopy. He denies any recent weight loss. No recent surgeries. No trauma to the lower extremities. No family history of PE. He denies any recent travels. No long car rides or airplane rides. He is out of the [facility]. He has been mostly at home and working from home in the computer. He is a sales and business development manager. He feels he has been less active than usual due to the [id number] order as mandated by the state during the CoVid 19 pandemic. The patient is seen today the 2019 in follow-up on the regular medical floor. He is currently sitting up at the bedside. Awake and alert in no acute distress. He still has some dyspnea on minimal exertion. No significant chest discomfort. No hemoptysis. Maintaining good O2 saturations in the 90s on 2 L/m per nasal cannula. Less tachycardic. Afebrile. Hemodynamically stable. He is continued on a heparin drip. White count 10.1. Hematoma 14.4. Sodium 136. Potassium 4.3. Creatinine 1.04. Echocardiogram revealed preserved left ve ntricular systolic function with ejection fraction 60-65%. Right ventricle is mild to moderately enlarged. There is moderate to severe pulmonary hypertension with an RVSP of 55.44 mmHg. The patient is seen today 02/03/2020 in follow-up on the regular medical floor. He is awake and alert in no acute distress. Resting fairly comfortably in bed. He is still requiring 3 L/m per nasal cannula to maintain O2 saturations in the 90s. He was 88% on room air. He is afebrile. Hemodynamically stable. White count 8.6. Hemoglobin 13.4. Creatinine 1.12. He has been transitioned to Eliquis. The patient was seen today 02/04/2020 in follow-up on the regular medical floor. He is currently resting comfortably in bed. Awake and alert in no acute distress. Maintaining O2 saturations in the 90s on room air. No chest discomfort. No worsening shortness of breath. No hemoptysis. He's been init iated on Eliquis. Objective - Vital Signs Vital signs: Vital Signs Temp 98.3 F 02/04/20 12:41 Pulse 101 H 02/04/20 12:41 Resp 17 02/04/20 12:41 BP 123/87 02/04/20 12:41 Pulse Ox 94 L 02/04/20 12:41 Intake & Output 02/03/20 02/04/20 02/04/20 18:59 06:59 18:59 Intake Total 360 Balance 360 Weight 113.1 kg Intake: Oral 360 Other: Voiding Method Toilet Toilet Toilet # Voids 1 1 # Bowel Movements 0 - Exam GENERAL EXAM: Alert, active, very pleasant 59-year-old gentleman, on room air, comfortable in no apparent distress. HEAD: Normocephalic. EYES: Normal reaction of pupils, equal size. NOSE: Clear with pink turbinates. THROAT: No erythema or exudates. NECK: No masses, no JVD. CHEST: No chest wall deformity. LUNGS: Equal air entry with no crackles, wheeze, rhonchi or dullness. CVS: S1 and S2 normal with no audible murmur, regular rhythm. ABDOMEN: No hepatosplenomegaly, normal bowel sounds, no guarding or rigidity. SPINE: No scoliosis or deformity SKIN: No rashes CENTRAL NERVOUS SYSTEM: No focal deficits, tone is normal in all 4 extremities. EXTREMITIES: There is no peripheral edema. No clubbing, no cyanosis. Periphe ral pulses are intact. - Labs CBC & Chem 7: 02/03/20 05:51 02/03/20 05:51 Assessment and Plan Assessment: 1 Acute hypoxic respiratory failure with palpitations and near syncope related to bilateral pulmonary emboli within the bilateral lower lobes, right middle lobe, lingula 2 Left lower extremity DVT 3 Troponin leak possibly secondary to ventilation/perfusion mismatch 4 Moderate to severe pulmonary hypertension with an RVSP of 55 mmHg. Right ventricle is mild to moderately enlarged. 5 Remote history of chronic tobacco dependence 6 Previous history of upper respiratory/pneumonia treated 2 with antibiotics and steroids in the outpatient setting 7 Hypertension 8 Gastroesophageal reflux disease 9 Obesity Plan: The patient was seen and evaluated by Dr. Beverly Mata from the pulmonary standpoint On room air Continue Eliquis He is recommended at least 6 months of anticoagulation Cleared for discharge from the pulmonary standpoint I, the cosigning physician, performed a history & physical examination of the patient. Lungs sounds with faint crackles in the left base otherwise clear. Maintaining good O2 saturations in the 90s onroom air. I discussed the assessment and plan of care with my nurse practitioner, Ann No. I attest to the above note as dictated by her.
== END 2020-02-04 14:15 | disposition home or self-care (01) | DRG 175 ==
LOC: EC 12:36 → MERGE 15:11 → 3SCARD 15:11 → 5NMEDONC 02-03 17:43
PROVIDERS: ADMIT Family Medicine; ATTEND Family Medicine
DX: I26.99 Other pulmonary embolism without acute cor pulmonale (principal); J96.01 Acute respiratory failure with hypoxia; J98.11 Atelectasis; I82.432 Acute embolism and thrombosis of left popliteal vein; I27.20 Pulmonary hypertension, unspecified; R00.0 Tachycardia, unspecified; K21.9 Gastro-esophageal reflux disease without esophagitis; I10 Essential (primary) hypertension; E66.01 Morbid (severe) obesity due to excess calories; G47.33 Obstructive sleep apnea (adult) (pediatric); Z68.36 Body mass index [BMI] 36.0-36.9, adult; Z79.899 Other long term (current) drug therapy; Z87.01 Personal history of pneumonia (recurrent); Z87.891 Personal history of nicotine dependence; Z88.0 Allergy status to penicillin
CPT/HCPCS: 36415; 71045; 71046; 71275; 80048; 80053; 80306; 83735; 84443; 84484; 85025; 85379; 85610; 85730; 93005; 93306; 93970; 96361; 96365; 96376; 99291

== ENCOUNTER → 2020-07-31 | Outpatient (CLI) | payer OTHER ==
--- NOTE | 2020-07-31 15:09 | CT ---
CT CHEST FOR PULMONARY EMBOLISM. EXAMINATION TYPE: CT angio chest DATE OF EXAM: 07/31/2020 INDICATION: SOB CT DLP: 460.4 mGycm, Automated exposure control for dose reduction was used. CONTRAST: Patient injected with 70 mL of Isovue 370. COMPARISON: 02/01/2020 TECHNIQUE: CT of the chest is performed on a spiral scan at 2 mm thick sections. Study is performed with intravenous contrast timed for evaluation for pulmonary embolism. This will limit additional po rtions of the evaluation. 3-D MIP images reconstructed by the technologist are reviewed on the compu ter in the coronal and sagittal planes. FINDINGS: No persistent filling defects are evident to suggest an acute pulmonary embolism. Previous lower lobe pulmonary emboli are not evident on the current exam. No mediastinal or hilar adenopathy enlarged by CT criteria is evident. The ascending aorta diameter at the level of the main pulmonary artery is 3.6 cm. The main pulmonary artery diameter at the bifur cation is 2.7 cm. Lung windows are clear. Limited CT section through the upper abdomen. There is a 6.7 cm cyst measuring 18 Hounsfield units in these superior right lobe liver. IMPRESSIONS: 1. No acute pulmonary embolism. 2. Hepatic cyst.
== END | disposition home or self-care (01) ==
LOC: RADCTMAIN 09:19
PROVIDERS: ATTEND Family Medicine
DX: I26.99 Other pulmonary embolism without acute cor pulmonale (principal); Z88.0 Allergy status to penicillin
CPT/HCPCS: 71275; Q9967

== ENCOUNTER → 2020-09-05 | Outpatient (CLI) | payer OTHER | END | disposition home or self-care (01) | LOC: LABPAT 10:09 | PROVIDERS: ATTEND Surgery | DX: Z20.828 Contact with and (suspected) exposure to other viral communicable diseases (principal) | CPT/HCPCS: U0003; C9803 ==

== ENCOUNTER 2020-09-12 09:33 | Day surgery (SDC) | payer OTHER ==
[2020-09-10 11:05] VITALS: BMI 34.0
[~2020-09-12 09:33] MED LIST: LACTATED RINGERS 1,000 ML IV SCH; LIDOCAINE 1% (10MG/ML) FOR IV START INTRADERMA PRN
[2020-09-12] MEDS ORDERED: LACTATED RINGERS 1,000 ML IV ONE ×2 (09:53)
[2020-09-12 10:18] VITALS: TEMP 98.1
[2020-09-12] MEDS ORDERED: fentaNYL (PF) 50 MCG/ML 2 ML AMP ONE (10:42)
[2020-09-12] MEDS ORDERED: PROPOFOL 10 MG/ML 20 ML VIAL IV ONE (10:42)
[2020-09-12] MEDS ORDERED: LIDOCAINE 1% INJ 10MG/ML (20 ML MDV) ONE (10:42)
[2020-09-12 11:04] VITALS: RESP 17
--- NOTE | 2020-09-12 11:10 | P.GSHP ---
History of Present Illness H&P Date: 09/12/20 59-year-old male presents for a screening colonoscopy. He has never had a colonoscopy previously. He denies any recent change in bowel function. He denies blood in his stool. He denies any family history of colon cancer. Denies any recent fevers, chills, chest pain or shortness of breath. - Review of Systems All systems: negative Past Medical History Past Medical History: GERD/Reflux, Hypertension, Pulmonary Embolus (PE), Sleep Apnea/CPAP/BIPAP Additional Past Medical History / Comment(s): PE-01/2020 History of Any Multi-Drug Resistant Organisms: None Reported Past Surgical History: Orthopedic Surgery Additional Past Surgical History / Comment(s): RT HAND SX Past Anesthesia/Blood Transfusion Reactions: No Reported Reaction Smoking Status: Former smoker - Past Family History Father History Unknown: Yes Family Medical History: Cancer Mother History Unknown: Yes Family Medical History: No Reported History Medications and Allergies Home Medications Medication Instructions Recorded Confirmed Type Losartan [Cozaar] 50 mg PO DAILY 02/01/20 09/12/20 History Pantoprazole Sodium [Protonix] 40 mg PO DAILY 02/01/20 09/12/20 History hydroCHLOROthiazide [Hydrodiuril] 12.5 mg PO DAILY 02/01/20 09/12/20 History Allergies Allergy/AdvReac Type Severity Reaction Status Date / Time Penicillins Allergy Rash/Hives Verified 09/12/20 09:58 Surgical - Exam Osteopathic Statement: *. No significant issues noted on an osteopathic structural exam other than those noted in the History and Physical/Consult. Vital Signs Temp Pulse Resp BP Pulse Ox 98.1 F 98 16 134/84 96 09/12/20 10:10 09/12/20 10:10 09/12/20 10:10 09/12/20 10:10 09/12/20 10:10 - General well nourished, no distress - ENT no hearing loss - Respiratory normal respiratory effort - Abdomen Abdomen: soft, non tender - Psychiatric oriented to time, oriented to person, oriented to place Assessment and Plan Plan: 59-year-old male presents for colonoscopy for screening purposes. He has never had a colonoscopy. Risks, benefits and alternatives were provided to the patient. The patient did provide consent prior to attending the endoscopy suite.
--- NOTE | 2020-09-12 11:12 | P.PCN ---
Date of Procedure: 09/12/20 Preoperative Diagnosis: Screening Postoperative Diagnosis: Polyp of the cecum Diverticulosis Procedure(s) Performed: Colonoscopy with polypectomy Surgeon: Jass Sánchez Pathology: other (Polypectomy of the cecum) Condition: stable Disposition: same day Indications for Procedure: 59-year-old male presents for screening colonoscopy. He has never had colonoscopy previously. Risks, benefits and alternatives were provided to the patient. He did provide consent prior to attending the endoscopy suite. Operative Findings: Polyp of the cecum diverticulosis Description of Procedure: The patient was brought into the endoscopy suite and placed in left lateral decubitus position. Adequate sedation was achieved using conscious sedation. A digital rectal exam was performed and mild internal hemorrhoid for palpated. An endoscope was then placed in the rectum and advanced to the cecum as identified by landmarks including the appendiceal orifice and the ileocecal valve. The prep was good. The colonoscope was then slowly withdrawn, examining for any mucosal abnormalities. The cecum, ascending, transverse, descending and sigmoid colon were visualized adequately. There were no large neoplastic lesions noted throughout the colon. A small polyp was noted in the cecum. This was removed with cold forcep polypectomy. Hemostasis was maintained. Diverticulosis was noted scattered throughout the colon. It was noted most significantly in the sigmoid colon. Retroflexion was performed in the rectum and mild internal hemorrhoids were visible. Excess air was removed, the colonoscope withdrawn and the procedure terminated. The patient was then transferred to the recovery unit in stable condition. Repeat colonoscopy should be completed in 5 years due to finding of polyp.
[2020-09-12 11:18] VITALS: BP 110/74; PULSE 77
== END 2020-09-12 12:24 | disposition home or self-care (01) ==
LOC: ORWHC2ENDO 09:33
PROVIDERS: ATTEND Surgery
DX: Z12.11 Encounter for screening for malignant neoplasm of colon (principal); K63.5 Polyp of colon; K57.30 Diverticulosis of large intestine without perforation or abscess without bleeding; K64.8 Other hemorrhoids; K21.9 Gastro-esophageal reflux disease without esophagitis; G47.33 Obstructive sleep apnea (adult) (pediatric); I10 Essential (primary) hypertension; Z86.711 Personal history of pulmonary embolism; Z87.891 Personal history of nicotine dependence; Z80.9 Family history of malignant neoplasm, unspecified; Z98.890 Other specified postprocedural states; Z79.899 Other long term (current) drug therapy; Z88.0 Allergy status to penicillin
CPT/HCPCS: 88305; 45380; J2001; J3010; J2704

== ENCOUNTER → 2023-06-30 | Outpatient (CLI) | payer BC ==
--- NOTE | 2023-06-30 16:58 | XR ---
EXAMINATION TYPE: XR chest 2V DATE OF EXAM: 06/30/2023 4:19 PM COMPARISON: Chest radiographs from 02/04/2020 TECHNIQUE: XR chest 2V Frontal and lateral views of the chest. CLINICAL INDICATION:Male, 62 years old with history of R05.3; FINDINGS: Lungs/Pleura: There is no evidence of pleural effusion, focal consolidation, or pneumothorax. Pulmonary vascularity: Unremarkable. Heart/mediastinum: Cardiomediastinal silhouette is unremarkable. Musculoskeletal: No acute osseous pathology. IMPRESSION: No acute cardiopulmonary disease/process.
== END | disposition home or self-care (01) ==
LOC: RADXRMAIN 16:02
PROVIDERS: ATTEND Family Medicine
DX: R05.3 Chronic cough (principal)
CPT/HCPCS: 71046

== ENCOUNTER → 2023-09-28 | Outpatient (CLI) | payer BC ==
--- NOTE | 2023-09-28 09:52 | CT ---
EXAMINATION TYPE: CT sinus wo con DATE OF EXAM: 09/28/2023 COMPARISON: None HISTORY: chronic sinis infections CT DLP: 569.1 mGycm. Automated Exposure Control for Dose Reduction was Utilized. TECHNIQUE: CT scan of the sinuses is performed without contrast, axial images are obtained, coronal r eformatted images are also reviewed. FINDINGS: There is a moderate to severe mucosal thickening involving the right maxillary and moderate left axil yanet sinus with occlusion of the ostiomeatal complex bilaterally. Hyperdense rounded structure in the right maxillary sinus may represent mucous retention cyst or polyp. Hemorrhagic or fungal infection in the differential diagnosis. There is a slight nasal septal deviation. There is some anterior ethmoidal mucosal thickening. Frontal sinus and sphenoid sinus of normal aerat ion. Visualized portion of mastoid air cells show no abnormal opacification. The globes are intact bilate rally. Partially empty sella turcica. IMPRESSION: 1. Moderate to severe chronic sinusitis with occlusion of the ostiomeatal complex bilaterally.
== END | disposition home or self-care (01) ==
LOC: RADCTMAIN 08:13
PROVIDERS: ATTEND Family Medicine
DX: J32.8 Other chronic sinusitis (principal)
CPT/HCPCS: 70486